=== PATIENT | male | born 1970 | race Caucasian/White ===

== ENCOUNTER 2021-05-30 18:11 | Emergency (ER) | payer OTHER ==
[~2021-05-30] VITALS: Ht 162.6 cm; Wt 85.7 kg
[2021-05-30 18:20] VITALS: BP 155/91
--- NOTE | 2021-05-30 18:32 | NUR ---
51 YEAR OLD MALE COMPLAINS OF BLOODY STOOL X 2 MONTHS. PT STATES BLOOD IN STOOL IS RED, AND THAT HE ALSO HAS ABDOMINAL PAIN BUT ONLY AFTER EATING SPICY FOODS. PT ALSO COMPLAINS OF INCREASED BURPING. BOWEL SOUNDS NORMOACTIVE, NONTENDER. PT AOX4, BREATHING EVEN AND UNLABORED, SKIN WARM AND DRY. BED IN LOWEST POSITION, LOCKED, BED RAIL UPX1. PMH - HTN, DM2, HLD ALLERGIES - BENADRYL
--- NOTE | 2021-05-30 19:13 | NUR ---
REPORT GIVEN TO EARL MCCORMICK, TRANSFER OF CARE AT THIS TIME
--- NOTE | 2021-05-30 19:14 | NUR ---
RECEIVED REPORT FROM GAMALIEL MCCORMICK FOR CONTINUITY OF CARE
[2021-05-30 19:17] LABS: BASOPHILS # (AUTO) 0.1 K/uL (0.00-0.22); BASOPHILS % (AUTO) 0.9 % (0.0-2.0); EOSINOPHILS # (AUTO) 0.4 K/uL (0-0.4); HEMATOCRIT 40.5 % (36-52); HEMOGLOBIN 13.7 g/dL (12.0-18.0); LYMPHOCYTES # (AUTO) 2.5 K/uL (2.0-11.5); LYMPHOCYTES % (AUTO) 33.9 % (20.5-51.1); MEAN CORPUSCULAR HEMOGLOBIN 31 pg (27-31); MEAN CORPUSCULAR HGB CONC 34 g/dL (33-37); MEAN CORPUSCULAR VOLUME 91.2 fL (80-94); MONOCYTES # (AUTO) 0.6 K/uL (0.8-1.0); MONOCYTES % (AUTO) 8.5 % (1.7-9.3); NEUTROPHILS # (AUTO) 3.9 K/uL (1.8-7.7); NEUTROPHILS % (AUTO) 51.7 % (42.2-75.2); PLATELET COUNT (AUTO) 221 K/uL (140-450); RED BLOOD CELL COUNT(AUTO) 4.44 MIL/uL (4.20-6.10); RED CELL DISTRIBUTION WIDTH 12.9 % (11.6-13.7); WHITE BLOOD COUNT (AUTO) 7.5 K/uL (4.8-10.8)
--- NOTE | 2021-05-30 19:33 | NUR ---
Female Municipal Engineer accompanied male patient for Rectal Exam and fecal occult.
[2021-05-30 19:37] LABS: ALBUMIN 3.9 g/dL (3.4-5.0); ANION GAP 11.4 (8-16); CARBON DIOXIDE 26.6 mmol/L (21-32); CREATININE 0.9 mg/dL (0.6-1.3); TOTAL BILIRUBIN 0.2 mg/dL (0.0-1.0)
--- NOTE | 2021-05-30 19:47 | NUR ---
PT TAKEN TO CT
--- NOTE | 2021-05-30 19:55 | NUR ---
PT BACK FROM CT
--- NOTE | 2021-05-30 21:22 | NUR ---
Dr. Camacho examining patient.
[2021-05-30] MEDS ORDERED: DICYCLOMINE 20 MG/2 ML VIAL IM ONE (21:30)
[2021-05-30] MEDS ORDERED: METR500T1 PO (21:36)
[2021-05-30] MEDS ORDERED: CIPR500T4 PO (21:36)
[2021-05-30] MEDS ORDERED: BEN10 PO (21:36)
[2021-05-30 21:49] VITALS: BP 140/80
--- NOTE | 2021-05-30 21:50 | NUR ---
Patient discharged with v/s stable. Written and verbal after care instructions given and explained. Patient verbalized understanding. Ambulatory with steady gait. All questions addressed prior to discharge. Advised to follow up with PMD.
== END 2021-05-30 21:50 | disposition home or self-care (01) ==
LOC: MED 18:11
DX: K57.92 Diverticulitis of intestine, part unspecified, without perforation or abscess without bleeding (principal); K92.2 Gastrointestinal hemorrhage, unspecified; E11.9 Type 2 diabetes mellitus without complications; I10 Essential (primary) hypertension; E78.5 Hyperlipidemia, unspecified; F17.200 Nicotine dependence, unspecified, uncomplicated; F12.90 Cannabis use, unspecified, uncomplicated; Z79.899 Other long term (current) drug therapy; Z88.8 Allergy status to other drugs, medicaments and biological substances; Z98.890 Other specified postprocedural states
CPT/HCPCS: 36415; 74176; 80053; 85025; 96372; 99284; J0500

== ENCOUNTER 2021-06-03 07:12 | Emergency (ER) | payer OTHER ==
[~2021-06-03] VITALS: Ht 162.6 cm; Wt 86.2 kg
[~2021-06-03 07:12] MED LIST: BEN10 PO; CIPR500T4 PO; METR500T1 PO
[2021-06-03 07:15] VITALS: BP 144/79
--- NOTE | 2021-06-03 07:22 | NUR ---
Patient ambulated to bed 04 with steady/even gait.
--- NOTE | 2021-06-03 07:23 | NUR ---
Dr. Carballo is evaluating patient at bedside.
--- NOTE | 2021-06-03 07:25 | NUR ---
51 y/o M BIB self from home with c/c abdominal pain. Patient A&Ox4, ambulatory, states seen here 05/30/21 for abdominal pain and blood in stool. Patient states discharged with ABX for diverticulitis which he has been compliant with since Thursday. Patient states today intermittent cramping pain with +bloody stools that is becoming more constant. Patient also reports migraine headaches to occiptal base and left sided back pain. Patient reports low abd pain 8/10, cramping/constant, non-radiating. Patient denies any medications prior to arrival. Patient denies fever, chills, nausea, vomiting, blurry vision, dizziness, recent trauma, falls, injury. Pt placed into a gown and nurse monitoring in place. Lung sounds CTA. Bowel sounds normoactive x 4 quadrants. Skin pink/dry/warm. Bed locked in lowest position, side rails x 1, call light in reach. PMH: DM2, HTN, HIGH CHOLESTROL ALLERGY: DIPHENHYDRAMINE (HIVES) MED: CIPRO Addendum: 06/03/21 at 0745 by MEDRODRIGO Denies any medications prior to arrival
[2021-06-03] MEDS ORDERED: ACETAMINOPHEN 325 MG TAB PO ONE (07:30)
--- NOTE | 2021-06-03 07:40 | NUR ---
Blood sample collected, walked to lab and handed to CPT. Paul
[2021-06-03 07:54] LABS: BASOPHILS # (AUTO) 0.1 K/uL (0.00-0.22); BASOPHILS % (AUTO) 1.1 % (0.0-2.0); EOSINOPHILS # (AUTO) 0.2 K/uL (0-0.4); EOSINOPHILS % (AUTO) 4.5 % (0.0-4.0); HEMATOCRIT 43.2 % (36-52); HEMOGLOBIN 14.5 g/dL (12.0-18.0); LYMPHOCYTES # (AUTO) 1.8 K/uL (2.0-11.5); LYMPHOCYTES % (AUTO) 32.3 % (20.5-51.1); MEAN CORPUSCULAR HEMOGLOBIN 31 pg (27-31); MEAN CORPUSCULAR HGB CONC 34 g/dL (33-37); MEAN CORPUSCULAR VOLUME 92.5 fL (80-94); MONOCYTES # (AUTO) 0.6 K/uL (0.8-1.0); MONOCYTES % (AUTO) 10.5 % (1.7-9.3); NEUTROPHILS # (AUTO) 2.8 K/uL (1.8-7.7); NEUTROPHILS % (AUTO) 51.6 % (42.2-75.2); PLATELET COUNT (AUTO) 233 K/uL (140-450); RED BLOOD CELL COUNT(AUTO) 4.67 MIL/uL (4.20-6.10); RED CELL DISTRIBUTION WIDTH 12.9 % (11.6-13.7); WHITE BLOOD COUNT (AUTO) 5.4 K/uL (4.8-10.8)
--- NOTE | 2021-06-03 07:57 | NUR ---
Patient states + relief after Tylenol PO. Rates pain 4/10 at this time; denies nausea. All pt needs met.
[2021-06-03 08:10] VITALS: BP 144/79
== END 2021-06-03 08:10 | disposition home or self-care (01) ==
LOC: MED 07:12
DX: R51.9 Headache, unspecified (principal); M54.5 Low back pain; K57.90 Diverticulosis of intestine, part unspecified, without perforation or abscess without bleeding; K62.5 Hemorrhage of anus and rectum; E11.9 Type 2 diabetes mellitus without complications; I10 Essential (primary) hypertension; E78.5 Hyperlipidemia, unspecified; F17.200 Nicotine dependence, unspecified, uncomplicated; F12.90 Cannabis use, unspecified, uncomplicated; Z98.890 Other specified postprocedural states; Z79.899 Other long term (current) drug therapy
CPT/HCPCS: 36415; 85025; 99283

== ENCOUNTER 2022-07-24 17:10 | Observation (INO) | payer OTHER ==
[~2022-07-24] VITALS: Ht 162.6 cm; Wt 81.6 kg
[2022-07-24 17:21] VITALS: BP 95/59
--- NOTE | 2022-07-24 17:44 | NUR ---
C/O FEELING FATIGUE AND DIZZY SINCE LAST NIGHT AFTER WORK. PT STATES HE WORKS IN A [employer] AND IT IS VERY HOT IN THERE. PT RECENTLY HAD FOOD POISONING LAST WEEK. DENIES HEADACHE, LOC, FEVER. PMH: DM, HTN, ULCERATIVE COLITIS, HIGH CHOL MEDS METFORMIN 1000MG, LIPITOR, LISINOPRIL
--- NOTE | 2022-07-24 17:45 | NUR ---
IV 20G TO LEFT AC
--- NOTE | 2022-07-24 17:45 | NUR ---
BG 200
[2022-07-24] MEDS ORDERED: NACL 0.9% 1,000 ML IV ONE (17:55)
--- NOTE | 2022-07-24 19:15 | NUR ---
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 HX- ULCERATIVE COLITIS, DM
--- NOTE | 2022-07-24 19:15 | NUR ---
Pt report given to Tor. Transfer of care at this time.
--- NOTE | 2022-07-24 19:20 | NUR ---
PT PLACED ON CHIEF CONTROLLER TOWER.
[2022-07-24] MEDS ORDERED: LACTATED RINGERS 1,000 ML IV ONE (19:25)
[2022-07-24 19:44] LABS: BASOPHILS # (AUTO) 0.1 K/uL (0.00-0.22); BASOPHILS % (AUTO) 0.8 % (0.0-2.0); EOSINOPHILS # (AUTO) 0.1 K/uL (0-0.4); EOSINOPHILS % (AUTO) 1.4 % (0.0-4.0); HEMATOCRIT 40.2 % (36-52); HEMOGLOBIN 13.6 g/dL (12.0-18.0); LYMPHOCYTES # (AUTO) 2.4 K/uL (2.0-11.5); LYMPHOCYTES % (AUTO) 28.1 % (20.5-51.1); MEAN CORPUSCULAR HEMOGLOBIN 30 pg (27-31); MEAN CORPUSCULAR HGB CONC 34 g/dL (33-37); MEAN CORPUSCULAR VOLUME 88.5 fL (80-94); MONOCYTES # (AUTO) 0.6 K/uL (0.8-1.0); NEUTROPHILS # (AUTO) 5.4 K/uL (1.8-7.7); NEUTROPHILS % (AUTO) 62.7 % (42.2-75.2); PLATELET COUNT (AUTO) 241 K/uL (140-450); RED BLOOD CELL COUNT(AUTO) 4.54 MIL/uL (4.20-6.10); WHITE BLOOD COUNT (AUTO) 8.7 K/uL (4.8-10.8)
[2022-07-24 20:11] LABS: ALBUMIN 3.9 g/dL (3.4-5.0); ANION GAP 20.4 (8-16); CARBON DIOXIDE 20.3 mmol/L (21-32); CREATININE 3.5 mg/dL (0.6-1.3); POTASSIUM 4.7 mmol/L (3.5-5.1); TOTAL BILIRUBIN 0.2 mg/dL (0.0-1.0)
[2022-07-24] MEDS ORDERED: METF-346 PO (20:37)
--- NOTE | 2022-07-24 21:00 | NUR ---
PT SPEAKING WITH HIS ON THE PHONE, DENIES ANY DIZZINES OR CP.
[2022-07-24] MEDS ORDERED: ONDANSETRON 4 MG/2 ML VIAL IVP PRN (22:05)
[2022-07-24] MEDS ORDERED: ACETAMINOPHEN 325 MG TAB PO PRN (22:05)
[2022-07-24] MEDS ORDERED: HYDROcodone/APAP 5/325 MG 1 TAB TAB PO PRN (22:05)
[2022-07-24] MEDS ORDERED: LORazepam 1 MG TAB PO PRN (22:05)
[2022-07-24] MEDS ORDERED: NACL 0.9% 1,000 ML IV SCH (22:05)
[2022-07-24 22:09] LABS: APPEARANCE,URINE CLEAR (CLEAR); BILIRUBIN,URINE NEGATIVE (NEGATIVE); BLOOD, URINE NEGATIVE (NEGATIVE); COLOR,URINE YELLOW (YELLOW); LEUKOCYTE ESTERASE ,URINE NEGATIVE (NEGATIVE); NITRITE, URINE NEGATIVE (NEGATIVE); UGLUCOSE NEGATIVE (NEGATIVE)
[2022-07-24 22:20] LABS: BARBITURATE, URINE NEGATIVE ng/ml (NEG <=200); BENZODIAZEPINE, URINE NEGATIVE ng/mL (NEG <=200); CANNABINOID, URINE NEGATIVE ng/mL (NEG <=50); COCAINE, URINE NEGATIVE ng/mL (NEG <=300); OPIATE, URINE NEGATIVE ng/mL (NEG <=2000); PHENCYCLIDINE SCREEN,URINE NEGATIVE ng/mL (NEG <=25)
--- NOTE | 2022-07-24 23:00 | NUR ---
PT AMBULATED TO RESTROOM WITH UPRIGHT STEADY GAIT, DENIES ANY DISCOMFORT AT PRESENT TIME.
--- NOTE | 2022-07-24 23:30 | NUR ---
PT REQUESTED SOME FOOD, STATES HE HAS NOT ATE SINCE THE MORNING. DR ARIELLA MCCLAIN TO EAT FOOD. TURKEY SANDWICH AND WATER GIVEN.
--- NOTE | 2022-07-25 00:10 | NUR ---
PT AMBULATED TO RESTROOM WITH UPRIGHT STEADY GAIT.
[2022-07-25 00:48] LABS: CARBON DIOXIDE 27.5 mmol/L (21-32); CREATININE 2.5 mg/dL (0.6-1.3); POTASSIUM 4.5 mmol/L (3.5-5.1)
[2022-07-25] MEDS ORDERED: ASPI-1822 PO (01:12)
[2022-07-25] MEDS ORDERED: METF-346 PO (01:17)
[2022-07-25] MEDS ORDERED: ATOR20TA PO (01:17)
[2022-07-25] MEDS ORDERED: OMEP-278 PO (01:17)
[2022-07-25] MEDS ORDERED: AMLO5TAB PO (01:19)
[2022-07-25] MEDS ORDERED: LISI-487 PO (01:19)
--- NOTE | 2022-07-25 03:00 | NUR ---
PT AMBULATED TO RESTROOM , NO DISTRESS OBSERVED.
[2022-07-25 04:13] LABS: BASOPHILS # (AUTO) 0.1 K/uL (0.00-0.22); BASOPHILS % (AUTO) 0.8 % (0.0-2.0); EOSINOPHILS # (AUTO) 0.4 K/uL (0-0.4); EOSINOPHILS % (AUTO) 5.2 % (0.0-4.0); HEMATOCRIT 39.9 % (36-52); HEMOGLOBIN 13.7 g/dL (12.0-18.0); LYMPHOCYTES # (AUTO) 3.5 K/uL (2.0-11.5); LYMPHOCYTES % (AUTO) 40.9 % (20.5-51.1); MEAN CORPUSCULAR HEMOGLOBIN 30 pg (27-31); MEAN CORPUSCULAR HGB CONC 34 g/dL (33-37); MEAN CORPUSCULAR VOLUME 88.4 fL (80-94); MONOCYTES # (AUTO) 0.6 K/uL (0.8-1.0); MONOCYTES % (AUTO) 6.9 % (1.7-9.3); NEUTROPHILS # (AUTO) 3.9 K/uL (1.8-7.7); NEUTROPHILS % (AUTO) 46.2 % (42.2-75.2); PLATELET COUNT (AUTO) 233 K/uL (140-450); RED BLOOD CELL COUNT(AUTO) 4.51 MIL/uL (4.20-6.10); WHITE BLOOD COUNT (AUTO) 8.5 K/uL (4.8-10.8)
[2022-07-25 04:42] LABS: ALBUMIN 3.6 g/dL (3.4-5.0); CARBON DIOXIDE 22.3 mmol/L (21-32); MAGNESIUM 2.3 mg/dL (1.8-2.4); PHOSPHORUS 4.7 mg/dL (2.5-4.9); POTASSIUM 4.3 mmol/L (3.5-5.1); TOTAL BILIRUBIN 0.2 mg/dL (0.0-1.0)
--- NOTE | 2022-07-25 05:30 | NUR ---
PT ADMITTED FOR [facility] AND WAITING FOR ADMISSION BED TO BE AVAILABLE.
--- NOTE | 2022-07-25 07:19 | NUR ---
REPORT GIVEN TO NADINE MCCORMICK.
--- NOTE | 2022-07-25 07:54 | NUR ---
Patient will be admitted to care of DR MONROE. Admited to TELEMETRY. Will go to room 126B. Belongings list completed. Report to RANJEET MCCORMICK.
[2022-07-25] MEDS ORDERED: INSULIN LISPRO SLIDING SCALE 100 UNITS/ML VIAL SUBQ PRN (08:10)
[2022-07-25] MEDS ORDERED: DEXTROSE 50% 50 ML SYR IVP PRN (08:10)
--- NOTE | 2022-07-25 08:28 | NUR ---
RECEIVED PT , AAOX4 , IV SITE INTACT , NID , O2 SAT WNL , WALKS TO BED , PLAN OF CARE DISCUSSED AND VERBALIZES UNDERSTANDING , CALL LIGHT WITHIN REACH . WILL CONT. TO MONITOR .
--- NOTE | 2022-07-25 08:30 | NUR ---
bs 154
[2022-07-25] MEDS ORDERED: ASPIRIN 81 MG TAB.CHEW PO SCH (09:00)
[2022-07-25] MEDS ORDERED: ATORVASTATIN 20 MG TAB PO SCH (09:00)
[2022-07-25] MEDS ORDERED: PANTOPRAZOLE 40 MG TABEC PO SCH (09:00)
[2022-07-25] MEDS ORDERED: DOCUSATE SODIUM 100 MG GELCAP PO SCH (09:00)
[2022-07-25] MEDS ORDERED: NON-FORMULARY ITEM (Omeprazole (Omeprazole) 1 TAB) PO SCH (09:00)
[2022-07-25] MEDS ORDERED: amLODIPine 5 MG TAB PO SCH (09:00)
--- NOTE | 2022-07-25 09:40 | NUR ---
SEEN BY DR. REID - PER ORDER PT FOR DISCHARGE HOME TODAY .
--- NOTE | 2022-07-25 09:51 | NUR ---
excuse letter given to the pt .
[2022-07-25 09:52] VITALS: BP 128/70
[2022-07-25 09:54] LABS: ANION GAP 12.1 (8-16); CARBON DIOXIDE 26.8 mmol/L (21-32); CREATININE 1.7 mg/dL (0.6-1.3); POTASSIUM 4.9 mmol/L (3.5-5.1)
--- NOTE | 2022-07-25 11:05 | NUR ---
DISCHARGED - STABLE . COMMUNITY CASE MANAGER BY COUSIN , VIA PRIVATE CAR .
[2022-07-25] MEDS ORDERED: BLOOD GLUCOSE MONITORING 1 DEV DEV FS SCH (11:30)
== END 2022-07-25 10:55 | disposition home or self-care (01) ==
LOC: MED 17:10 → MTU 22:04 → MMU 07-25 05:33
PROVIDERS: ADMIT Hospitalist; ATTEND Hospitalist
DX: E87.2 Acidosis (principal); Z20.822 Contact with and (suspected) exposure to COVID-19; N17.9 Acute kidney failure, unspecified; E86.0 Dehydration; I10 Essential (primary) hypertension; E11.9 Type 2 diabetes mellitus without complications; E78.5 Hyperlipidemia, unspecified; K51.90 Ulcerative colitis, unspecified, without complications; R57.1 Hypovolemic shock; Z79.899 Other long term (current) drug therapy
CPT/HCPCS: 36415; 36600; 80048; 80053; 80305; 81003; 82009; 82803; 82948; 83735; 84100; 85025; 87081; 87426; 93005; 96360; 96361; 99291; G0378; J1815

== ENCOUNTER 2022-08-07 22:54 | Emergency (ER) | payer OTHER ==
[~2022-08-07] VITALS: Ht 162.6 cm; Wt 87.1 kg
[~2022-08-07 22:54] MED LIST changes: +AMLO5TAB PO; +ASPI-1822 PO; +ATOR20TA PO; -BEN10 PO; -CIPR500T4 PO; +LISI-487 PO; +METF-346 PO; -METR500T1 PO; +OMEP-278 PO
[2022-08-07 23:14] VITALS: BP 98/59
--- NOTE | 2022-08-08 00:48 | NUR ---
PT TAKEN TO BED 2
--- NOTE | 2022-08-08 01:00 | NUR ---
NAUSEA, LOWER BACK PAIN, NO TRAUMA NOR INJURY FOR 4 DAYS S/P WORK, CHEST PAIN WHEN HE COUGH
--- NOTE | 2022-08-08 02:24 | NUR ---
Patient being evaluated by physician at bedside.
[2022-08-08] MEDS ORDERED: KETOROLAC 60 MG/2 ML VIAL IM ONE (02:30)
[2022-08-08] MEDS ORDERED: PRED20TA5 PO (02:37)
[2022-08-08] MEDS ORDERED: ONDA8TAB87 PO (02:37)
[2022-08-08] MEDS ORDERED: IBUP-2213 PO (02:37)
[2022-08-08 03:10] VITALS: BP 98/59
--- NOTE | 2022-08-08 03:10 | NUR ---
Patient discharged with v/s stable. Written and verbal after care instructions given and explained. Patient alert, oriented and verbalized understanding of instructions. Ambulatory with steady gait. All questions addressed prior to discharge. ID band removed. Patient advised to follow up with PMD. Rx of ZOFRAN & PREDNISONE given. Patient educated on indication of medication including possible reaction and side effects. Opportunity to ask questions provided and answered.
== END 2022-08-08 03:10 | disposition home or self-care (01) ==
LOC: MED 22:54
DX: R10.13 Epigastric pain (principal); R07.9 Chest pain, unspecified; I10 Essential (primary) hypertension; E11.9 Type 2 diabetes mellitus without complications; Z79.4 Long term (current) use of insulin; Z79.899 Other long term (current) drug therapy; Z88.8 Allergy status to other drugs, medicaments and biological substances
CPT/HCPCS: 81002; 93005; 96372; 99283; J1885